=== PATIENT | male | born 1955 | race Caucasian/White ===

== ENCOUNTER 2017-11-27 19:34 | Observation (INO) ==
--- NOTE | 2017-11-27 19:41 | Emergency Department Note ---
Disposition Clinical Impression: History of BPH, History of prostatitis Hematuria Qualifiers: Hematuria type: gross Qualified Code(s): R31.0 - Gross hematuria Rhodes catheter problem Qualifiers: Encounter type: initial encounter Qualified Code(s): T83.9XXA - Unspecified complication of genitourinary prosthetic device, implant and graft, initial encounter Disposition: Admitted As Inpatient Condition: Good Time of Disposition: 21:07 General Adult HPI - General Chief complaint: ED Urogenital-Male Stated complaint: Cath Prob Time Seen by Provider: 11/27/17 19:41 Source: patient Mode of arrival: ambulatory Limitations: no limitations Nursing Notes Reviewed: Yes Vital Signs Reviewed: Yes - History of Present Illness HPI Narrative: Patient is a 62-year-old male with past medical history of BPH, CAD. He presented today due to urinary retention to the ER earlier in the day. He said that he has had issues in the past with BPH and urinary retention and has required antibiotic treatment for prostatitis. He is currently on doxycycline for prostatitis. he also takes plavix and aspirin daily. He states that ever since the Rhodes was placed this morning, he has had bleeding. Now, his catheter has stopped draining completely. Nursing staff flushed his catheter and was able to get urine out but it is eulalia red blood. He currently complains of mild suprapubic pain but denies any nausea, vomiting, fevers, diarrhea, chest pain, shortness of breath, fevers. Pain Scale: 10 - Related Data Home Medications Medication Instructions Recorded Confirmed Aspirin 81 mg PO DAILY 10/24/15 10/24/15 Atorvastatin Calcium [Lipitor] 80 mg PO HS 10/24/15 10/24/15 Cholecalciferol (Vitamin D3) 5,000 unit PO DAILY 10/24/15 10/24/15 [Vitamin D3] Clopidogrel [Plavix] 75 mg PO DAILY 10/24/15 10/24/15 Cyanocobalamin (Vitamin B-12) 1,000 mcg SL DAILY 10/24/15 10/24/15 [Vitamin B-12] Fluticasone Propionate Nasal 50 mcg NS DAILY 10/24/15 10/24/15 [Flonase] Gabapentin [Neurontin] 300 mg PO BID 10/24/15 10/24/15 Isosorbide MONOnitrate [Isosorbide 120 mg PO DAILY 10/24/15 10/24/15 Mononitrate ER] Metoprolol XL (24 HR) Succ [Toprol 50 mg PO DAILY 10/24/15 10/24/15 Xl] Nitroglycerin [Nitrostat] 0.4 mg SL Q5-6MIN PRN 10/24/15 10/24/15 Omeprazole [PriLOSEC] 40 mg PO DAILY 10/24/15 10/24/15 Oxycodone HCl/Acetaminophen 1 tab PO Q6H PRN 10/24/15 10/24/15 [Percocet 7.5-325 mg Tablet] rOPINIRole [Requip] 3 mg PO HS 10/24/15 10/24/15 Allergies Allergy/AdvReac Type Severity Reaction Status Date / Time No Known Allergies Allergy Verified 11/27/17 19:38 All systems ED: reviewed and negative except as stated. Constitutional: Denies: fever Cardiovascular: Denies: chest pain Respiratory: Denies: dyspnea Gastrointestinal: Reports: abdominal pain. Denies: nausea, vomiting, diarrhea, constipation, hematemesis, melena, hematochezia Genitourinary: Reports: hematuria. Denies: urgency, dysuria, frequency, discharge, testicular pain, testicular mass, genital lesions Neurological: Denies: headache, weakness, numbness, paresthesias Past Medical History - Past Medical History Attestation: Yes The following information was validated with the patient. Source: patient Medical history: Reports: coronary artery disease, hyperlipidemia, hypertension , myocardial infarction, other Psychiatric history: Reports: no psych history - Social History Smoking Status: Never smoker Smokeless Tobacco Status: Yes Alcohol use: Reports: none Drug use: Reports: none Physical Exam - General General appearance: alert, anxious - Head Head exam: atraumatic, normocephalic, normal inspection - Eye Eye exam: Present: normal appearance, PERRL, EOMI - ENT ENT exam: normal exam, normal oropharynx, mucous membranes moist - Neck Neck exam: Present: normal inspection, full ROM, trachea midline - Chest Chest inspection: Present: normal inspection, symmetric chest wall rise - Respiratory Respiratory exam: Present: normal lung sounds bilaterally - Cardiovascular Cardiovascular exam: Present: regular rate, normal rhythm, normal heart sounds - Abdominal Exam Abdominal exam: Present: soft, Non-Tender. Absent: tenderness, distention, guarding, rebound, rigidity - Extremities Exam Extremities exam: Present: normal inspection, full ROM. Absent: tenderness, pedal edema - Neurological Exam Neurological exam: Present: alert, oriented X3 - Psychiatric Psychiatric exam: Present: normal affect, normal mood - Skin Skin exam: Present: warm, dry, intact, normal color Course Course Narrative: Patient hypertensive when he first came in. Otherwise, the rest of the vitals were within normal limits. Physical exam shows clear lungs to auscultation bilaterally, abdomen soft and nontender. Rhodes catheter is in place, it is a triple lumen, it was flushed a bedside by nursing staff. There has been return of urine into the bag now after flushing clots, but it looks like eulalia red blood at this point in the back. I talked with urology, Dr. Dennis. He states that he will be in to see the patient in an hour. He has requested that urology cart be at bedside. He will flush the catheter himself. He also recommended admission due to gross bleeding for monitoring. We will obtain CBC , BMP, PT/INR, PTT, CT abd pelvis with IV contrast to assess for any puncture of urethera/bladder. Will admit to hospitalist after urology evaluates and bedside and labs are back. 23:27 Catheter has been flushed and changed by urologist. Hemoglobin within normal limits. Creatinine within normal limits. Currently waiting on CT scan of abdomen and pelvis. Spoke with hospitalist and accepted for admission. Vital Signs Temperature 98.1 F 11/27/17 19:36 Pulse Rate 94 11/27/17 19:36 Respiratory Rate 16 11/27/17 19:36 Blood Pressure 200/92 11/27/17 19:36 O2 Sat by Pulse Oximetry 96 11/27/17 19:36 Temperature 97.7 F 11/28/17 01:54 Pulse Rate 76 11/28/17 01:54 Respiratory Rate 17 11/28/17 01:54 Blood Pressure 120/65 11/28/17 01:54 O2 Sat by Pulse Oximetry 95 11/28/17 01:54 Oxygen Delivery Oxygen Delivery Room Air Medical Decision Making - MDM Narrative Medical decision making narrative: Patient hypertensive when he first came in. Otherwise, the rest of the vitals were within normal limits. Physical exam shows clear lungs to auscultation bilaterally, abdomen soft and nontender. Rhodes catheter is in place, it is a triple lumen, it was flushed a bedside by nursing staff. There has been return of urine into the bag now after flushing clots, but it looks like eulalia red blood at this point in the back. I talked with urology, Dr. Dennis. He states that he will be in to see the patient in an hour. He has requested that urology cart be at bedside. He will flush the catheter himself. He also recommended admission due to gross bleeding for monitoring. We will obtain CBC , BMP, PT/INR, PTT, CT abd pelvis with IV contrast to assess for any puncture of urethera/bladder. Will admit to hospitalist after urology evaluates and bedside and labs are back. 23:27 Catheter has been flushed and changed by urologist. Hemoglobin within normal limits. Creatinine within normal limits. Currently waiting on CT scan of abdomen and pelvis. Spoke with hospitalist and accepted for admission. 00:03 CT abdomen and pelvis negative for any acute process Abdomen/Pelvis CT 11/27/17 21:00 IMPRESSION: 1. Rhodes catheter within a decompressed bladder with nonspecific bladder wall thickening. 2. Nonspecific prostatomegaly. 3. Stable right greater than left nonspecific perinephric stranding. Correlation with urine analysis for possibility of pyelonephritis is recommended. 4. Punctate nonobstructing right renal calculi. 4 mm nonobstructing left renal calculi. No hydronephrosis bilaterally. 5. Otherwise no acute findings. Stable chronic incidental is as above. D/ / Elías Salinas MD / Elías Salinas MD Interpreting Provider: Elías Salinas MD - Medical Records Medical records reviewed: Yes I reviewed the patient's medical records. - Lab Data Lab results reviewed: Yes I reviewed the patient's lab results. Result diagrams: 11/27/17 22:00 11/27/17 22:00 Lab Results 11/27/17 11/27/17 11/27/17 Range/Units 22:00 22:00 22:00 WBC 8.1 (4.3-11.1) K/mcL RBC 4.95 (4.19-5.50) M/mcL Hgb 14.7 (12.9-16.9) g/dL Hct 43.5 (37.5-50.1) % MCV 87.9 (83.0-100.0) fL MCH 29.7 (28.0-33.3) pg MCHC 33.8 (31.6-35.5) g/dL RDW 13.9 (11.5-14.5) % Plt Count 229 (140-400) K/mcL MPV 10.0 (9.4-12.4) fL Immature Gran % 0.2 (0-4) % Seg Neutrophils % 76.5 % Lymphocytes % 13.8 % Monocytes % 7.0 % Eosinophils % 2.0 % Basophils % 0.5 % Neutrophils # 6.2 (1.6-8.9) K/mcL Lymphocytes # 1.1 (0.6-4.6) K/mcL Monocytes # 0.6 (0.0-1.3) K/mcL Eosinophils # 0.2 (0.0-0.6) K/mcL Basophils # 0.0 (0.0-0.2) K/mcL PT 12.6 H (9.4-12.1) Seconds INR 1.2 APTT 32.9 (26.0-36.0) Seconds Sodium 136 (136-145) mEq/L Potassium 4.4 (3.5-5.1) mEq/L Chloride 105 (98-107) mEq/L Carbon Dioxide 27 (23-29) mEq/L BUN 18 (8-23) mg/dL Creatinine 1.14 (0.70-1.30) mg/dL Est GFR ( Amer) > 60 (> 60) Est GFR (Non-Af Amer) > 60 (> 60) BUN/Creatinine Ratio 16 (6-26) Glucose 109 H (70-105) mg/dL Calculated Osmolality 284 (280-300) Calcium 10.1 (8.6-10.3) mg/dL Blood Type Antibody Screen 11/27/17 Range/Units 22:00 WBC (4.3-11.1) K/mcL RBC (4.19-5.50) M/mcL Hgb (12.9-16.9) g/dL Hct (37.5-50.1) % MCV (83.0-100.0) fL MCH (28.0-33.3) pg MCHC (31.6-35.5) g/dL RDW (11.5-14.5) % Plt Count (140-400) K/mcL MPV (9.4-12.4) fL Immature Gran % (0-4) % Seg Neutrophils % % Lymphocytes % % Monocytes % % Eosinophils % % Basophils % % Neutrophils # (1.6-8.9) K/mcL Lymphocytes # (0.6-4.6) K/mcL Monocytes # (0.0-1.3) K/mcL Eosinophils # (0.0-0.6) K/mcL Basophils # (0.0-0.2) K/mcL PT (9.4-12.1) Seconds INR APTT (26.0-36.0) Seconds Sodium (136-145) mEq/L Potassium (3.5-5.1) mEq/L Chloride (98-107) mEq/L Carbon Dioxide (23-29) mEq/L BUN (8-23) mg/dL Creatinine (0.70-1.30) mg/dL Est GFR ( Amer) (> 60) Est GFR (Non-Af Amer) (> 60) BUN/Creatinine Ratio (6-26) Glucose (70-105) mg/dL Calculated Osmolality (280-300) Calcium (8.6-10.3) mg/dL Blood Type A POSITIVE Antibody Screen NEGATIVE - Radiology Data Radiology results reviewed: Yes I reviewed the patient's radiology results. S.B.A.R. - S.B.A.R. Situation: Demographics, MOA Background: Presenting Complaint, Relevant PMH, Meds, & Allergies Assessment: Vital Signs, Course and respsone to treatment, Exam Concerns, Patient/Family Expectation, Pertinant Lab Results, Outstanding Labs Recommendation: Barrier(s) to disposition, Recommendation based on pending studies, treatments, or consults S.B.A.R. Report Given to: Dr. Florentino - Pending CT abd pelvis S.B.A.R. Repor Time: 00:03 Attestation Statement - Attestation Attestation: I examined this patient and my medical decision-making was reviewed with the Resident Physician. I agree with the documented findings, disposition and treatment plan as described except to the extent set forth below. Findings consistent with bleeding from the Rhodes catheter. Urology is available at bedside. Plan to admit for further management after bladder edition. Urology will evaluate the patient on the floor. CT scan shows findings consistent with cystitis. Antibiotic coverage was initiated.
--- NOTE | 2017-11-27 21:35 | Urology - Consult Note ---
Date of Encounter: 11/27/17 Time of Encounter: 21:32 - Assessment and Plan (1) Hematuria Current Visit: Yes Status: Acute Assessment and plan: Patient's 22-Ukrainian catheter was manually irrigated but did not seem to irrigate well secondary to bladder spasms. Patient did then spasms some clots around the catheter. I removed this catheter and then placed a 24-Ukrainian hematuria catheter. 20 mL was placed in the balloon. This then irrigated well the patient continue with bladder spasms. Agree with CT abdomen and pelvis to evaluate for status of residual clot within the bladder as well as upper tract pathology. Patient would brought in for observation for continuous bladder irrigation. Qualifiers: Hematuria type: gross Qualified Code(s): R31.0 - Gross hematuria (2) Acute retention of urine Current Visit: No Status: Acute Assessment and plan: Will need to continue with catheter at this time. Patient well-established Dr. Alexander. We will schedule follow-up depending on results of continuous irrigation as well as CT scan. Urology CN:HPI Consult date: 11/27/17 Reason for consult Urology: Difficult Rhodes Requesting physician: Jose Alejandro La History of present illness: Olaf is a 62-year-old male with a history of off-and-on on gross hematuria. Patient presented to the emergency department this morning secondary hematuria. A 22-Ukrainian 3-way catheter was placed and eventually clear with light irrigation. Patient was discharged home. He returns later today secondary to catheter not functioning. Catheter was also not urinating well. Patient is known well to me for undergoing very similar problem one year ago. Patient does follow with Dr. Alexander and recently underwent cystoscopic evaluation for gross hematuria. Patient has not had any upper tract imaging for quite some time. Patient states that his pain has improved and his lower abdomen but is a 1 out of 10 pressure in nature with no radiation. Patient is on aspirin and Plavix for history of 3 cardiac stents. Past Med Surg Social Fam HX - Past Medical History Medical history: coronary artery disease, hyperlipidemia, hypertension, myocardial infarction, other Psychiatric history: no psych history - Social History Smoking Status: Never smoker Smokeless Tobacco Status: Yes Alcohol use: none Drug use: none Medications and Allergies Aspirin 81 mg PO DAILY 10/24/15 [History] Atorvastatin Calcium [Lipitor] 80 mg PO HS 10/24/15 [History] Cholecalciferol (Vitamin D3) [Vitamin D3] 5,000 unit PO DAILY 10/24/15 [History] Clopidogrel [Plavix] 75 mg PO DAILY 10/24/15 [History] Cyanocobalamin (Vitamin B-12) [Vitamin B-12] 1,000 mcg SL DAILY 10/24/15 [ History] Fluticasone Propionate Nasal [Flonase] 50 mcg NS DAILY 10/24/15 [History] Gabapentin [Neurontin] 300 mg PO BID 10/24/15 [History] Isosorbide MONOnitrate [Isosorbide Mononitrate ER] 120 mg PO DAILY 10/24/15 [ History] Metoprolol XL (24 HR) Succ [Toprol Xl] 50 mg PO DAILY 10/24/15 [History] Nitroglycerin [Nitrostat] 0.4 mg SL Q5-6MIN PRN 10/24/15 [History] Omeprazole [PriLOSEC] 40 mg PO DAILY 10/24/15 [History] Oxycodone HCl/Acetaminophen [Percocet 7.5-325 mg Tablet] 1 tab PO Q6H PRN [History] rOPINIRole [Requip] 3 mg PO HS 10/24/15 [History] 3 Allergy/AdvReac Type Severity Reaction Status Date / Time No Known Allergies Allergy Verified 11/27/17 19:38 Review of Systems - Constitutional no chills, no fever(s) - EENT Nose, mouth and throat: no dizziness, no headache(s) - Cardiovascular no chest pain - Respiratory no cough - Gastrointestinal abdominal pain - Genitourinary as per HPI - Musculoskeletal no back pain - Integumentary no erythema, no rash - Neurological no confusion, no weakness - Psychiatric no anxiety, no confusion - Hematologic/Lymphatic easy bleeding Exam Initial Vital Signs Temp Pulse Resp BP Pulse Ox 98.1 F 94 16 200/92 96 11/27/17 19:36 11/27/17 19:36 11/27/17 19:36 11/27/17 19:36 11/27/17 19:36 - General physical appearance Present: well developed, no distress - Eyes Absent: icteric - Neck Present: no masses, no lymphadenopathy - Respiratory Present: normal respiratory effort - Cardiovascular Cardiovascular exam IM: RRR - Abdomen Abdomen: Present: soft, suprapubic tenderness - Genitourinary normal penis with no external lesions - Integumentary Present: no rash, no abnormal pigmentation - Neurologic Absent: confused Urology Results - Labs All other labs normal. Consult Discharge Plan - Plan Referrals: Vi Curtis CNP [Primary Care Provider] -
[2017-11-27 22:21] LABS: Basophils % 0.5 %; Eosinophils # 0.2 K/mcL (0.0-0.6); Hematocrit 43.5 % (37.5-50.1); Hemoglobin 14.7 g/dL (12.9-16.9); Immature Granulocytes % 0.2 % (0-4); Lymphocytes # 1.1 K/mcL (0.6-4.6); Lymphocytes % 13.8 %; Mean Corpuscular HGB Conc 33.8 g/dL (31.6-35.5); Mean Corpuscular Hemoglobin 29.7 pg (28.0-33.3); Mean Corpuscular Volume 87.9 fL (83.0-100.0); Monocytes # 0.6 K/mcL (0.0-1.3); Neutrophils # 6.2 K/mcL (1.6-8.9); Platelet Count 229 K/mcL (140-400); Red Blood Count 4.95 M/mcL (4.19-5.50); Red Cell Distribution Width 13.9 % (11.5-14.5); Segmented Neutrophils % 76.5 %
[2017-11-27 22:26] LABS: INR 1.2; Prothrombin Time 12.6 Seconds (9.4-12.1)
[2017-11-27 22:29] LABS: Activated Partial Thrombo Time 32.9 Seconds (26.0-36.0)
[2017-11-27] MEDS ORDERED: *HR* OxyCODONE/APAP 7.5/325 TABLET PO PRN (22:36)
[2017-11-27] MEDS ORDERED: Naloxone 0.4 MG/ML INJ IVP PRN (22:40)
[2017-11-27] MEDS ORDERED: Acetaminophen 325 MG TABLET PO PRN (22:40)
[2017-11-27] MEDS ORDERED: Melatonin 3 MG TABLET PO PRN (22:40)
[2017-11-27 22:41] LABS: BUN/Creatinine Ratio 16 (6-26); Blood Urea Nitrogen 18 mg/dL (8-23); Calcium 10.1 mg/dL (8.6-10.3); Carbon Dioxide 27 mEq/L (23-29); Chloride 105 mEq/L (98-107); Glucose 109 mg/dL (70-105); Osmolality,Calculated 284 (280-300); Potassium 4.4 mEq/L (3.5-5.1); Sodium 136 mEq/L (136-145); eGFR For African Americans > 60 (> 60); eGFR For Non-African Americans > 60 (> 60)
--- NOTE | 2017-11-27 22:45 | Internal Med History&Physical ---
Date of Encounter: 11/27/17 Time of Encounter: 22:42 Assessment and Plan (1) Hematuria Current visit: Yes Status: Acute needing davey placement today but unfortunately c/b gross hematuria , with clots and progression to obstructive uropathy needing admission and immediate urology assistance Now with 3 way irrigation davey Qualifiers: Hematuria type: gross Qualified Code(s): R31.0 - Gross hematuria (2) Acute retention of urine Current visit: No Status: Acute needing davey placement today but unfortunately c/b gross hematuria , with clots and progression to obstructive uropathy needing admission and immediate urology assistance Now with 3 way irrigation davey (3) History of prostatitis Current visit: Yes Status: Acute s/p doxy outpatient urine cx no growth follow urol dr michaels (4) CAD (coronary artery disease), [place] coronary artery Current visit: Yes Status: Acute last stent approx 4 years ago given bleeding , will continue 81 ASA but hold plavix this inpatient for now given stent > 4 years ago Qualifiers: [place] vs. transplanted heart: [place] heart Associated angina: without angina Qualified Code(s): I25.10 - Atherosclerotic heart disease of [place] coronary artery without angina pectoris Internal Medicine - H&P: HPI Chief complaint: Gross hematuria with clots, no Davey output History of present illness: Mr. Jeffers is a 62 year old male with hx of CAD s/p stents , last 4 years ago, BPH, hx of recurrent prostatitis who presents with urinary retention and had to have davey placement. However, post davey placement c/b gross hematuria with clots leading to obstructive uropathy. He was previously seen in the outpatient by dr michaels for 3-4 weeks hx of rectal pressure and LUTs suspicious for prostatitis. He was given a course of doxycycline since 2Feb with some improvement but later developed urinary retention leading to davey placement in the ED. Unfortunately, davey placement was complicated by obstructive clot uropathy above. Past Med Surg Social Fam HX - Past Medical History Medical history: coronary artery disease, hyperlipidemia, hypertension, myocardial infarction, other Psychiatric history: no psych history - Social History Smoking Status: Never smoker Smokeless Tobacco Status: Yes Alcohol use: none Drug use: none Internal Medicine - H&P: Meds Aspirin 81 mg PO DAILY 10/24/15 [History] Atorvastatin Calcium [Lipitor] 80 mg PO HS 10/24/15 [History] Cholecalciferol (Vitamin D3) [Vitamin D3] 5,000 unit PO DAILY 10/24/15 [History] Clopidogrel [Plavix] 75 mg PO DAILY 10/24/15 [History] Cyanocobalamin (Vitamin B-12) [Vitamin B-12] 1,000 mcg SL DAILY 10/24/15 [ History] Fluticasone Propionate Nasal [Flonase] 50 mcg NS DAILY 10/24/15 [History] Gabapentin [Neurontin] 300 mg PO BID 10/24/15 [History] Isosorbide MONOnitrate [Isosorbide Mononitrate ER] 120 mg PO DAILY 10/24/15 [ History] Metoprolol XL (24 HR) Succ [Toprol Xl] 50 mg PO DAILY 10/24/15 [History] Nitroglycerin [Nitrostat] 0.4 mg SL Q5-6MIN PRN 10/24/15 [History] Omeprazole [PriLOSEC] 40 mg PO DAILY 10/24/15 [History] Oxycodone HCl/Acetaminophen [Percocet 7.5-325 mg Tablet] 1 tab PO Q6H PRN [History] rOPINIRole [Requip] 3 mg PO HS 10/24/15 [History] 3 Allergy/AdvReac Type Severity Reaction Status Date / Time No Known Allergies Allergy Verified 11/27/17 19:38 All Systems PM: A 10-system review of systems was performed and is negative for pertinent findings except as documented above in the HPI. Review of systems: ROS 14 point review of systems reviewed as best as possible given presentation. Pertinent positive or negative as per HPI or otherwise reviewed as negative - Constitutional Vitals: Temp Pulse Resp BP Pulse Ox 98.1 F 80 20 143/80 94 11/27/17 19:36 11/27/17 22:07 11/27/17 22:07 11/27/17 22:07 11/27/17 22:07 Exam: General - AAO x 3 Psych - Appropriate affect/speech. No agitation Eyes - JODY. Eye lids intact. No scleral icterus Neuro - No gross peripheral or central neuro deficits on inspection Heart - Sinus. RRR. S1 and S2 present. No added HS/murmurs appreciated. No elevated JVD appreciated. Lung - Adequate air entry b/l, No crackles/wheezes appreciated GI - Soft, non-tender. No hepatosplenomegaly/ascites. BS+ - Davey in situ Skin - Intact. No rash/petechiae/ecchymosis. Warm extremities MSK - Joints with normal ROM. No joint swellings Internal Med - H&P Results - Labs CBC & Chem 7: 11/27/17 22:00 11/27/17 22:00 Labs: Short CBC 11/27/17 Range/Units 22:00 WBC 8.1 (4.3-11.1) K/mcL Hgb 14.7 (12.9-16.9) g/dL Hct 43.5 (37.5-50.1) % Plt Count 229 (140-400) K/mcL Neutrophils # 6.2 (1.6-8.9) K/mcL BMP 11/27/17 22:00 Sodium 136 Potassium 4.4 Chloride 105 Carbon Dioxide 27 BUN 18 Creatinine 1.14 Glucose 109 H Calcium 10.1
[2017-11-28] MEDS ORDERED: cefTRIAXone 2,000 MG in Water for inj. (sterile) 20 ML 20 ML IVPB ONE (00:16)
[2017-11-28] MEDS: *HR* OxyCODONE Immed Rel 5 MG TABLET PO PRN ×2 (01:14→09:52)
[2017-11-28 06:33] LABS: Basophils # 0.1 K/mcL (0.0-0.2); Basophils % 0.8 %; Eosinophils # 0.3 K/mcL (0.0-0.6); Eosinophils % 4.2 %; Hematocrit 45.7 % (37.5-50.1); Hemoglobin 15.1 g/dL (12.9-16.9); Immature Granulocytes % 0.3 % (0-4); Lymphocytes % 30.4 %; Mean Corpuscular Hemoglobin 29.2 pg (28.0-33.3); Mean Corpuscular Volume 88.4 fL (83.0-100.0); Mean Platelet Volume 9.9 fL (9.4-12.4); Monocytes # 0.6 K/mcL (0.0-1.3); Monocytes % 8.5 %; Neutrophils # 3.6 K/mcL (1.6-8.9); Platelet Count 250 K/mcL (140-400); Red Blood Count 5.17 M/mcL (4.19-5.50); Segmented Neutrophils % 55.8 %
[2017-11-28 06:49] LABS: BUN/Creatinine Ratio 19 (6-26); Blood Urea Nitrogen 16 mg/dL (8-23); Calcium 10.1 mg/dL (8.6-10.3); Carbon Dioxide 26 mEq/L (23-29); Chloride 105 mEq/L (98-107); Glucose 93 mg/dL (70-105); Osmolality,Calculated 283 (280-300); Potassium 4.2 mEq/L (3.5-5.1); Sodium 136 mEq/L (136-145); eGFR For African Americans > 60 (> 60); eGFR For Non-African Americans > 60 (> 60)
[2017-11-28 08:09] VITALS: BP 127/74
[2017-11-28] MEDS ORDERED: Fluticasone Propionate Nasal 50 MCG/SPRAY BOTTLE NS SCH (09:00)
[2017-11-28] MEDS ORDERED: Gabapentin 300 MG CAPSULE PO SCH (09:00)
[2017-11-28] MEDS ORDERED: Aspirin 81 MG TAB.CHEW PO SCH (09:00)
[2017-11-28] MEDS ORDERED: Cholecalciferol (D-3) 1,000 UNIT TABLET PO SCH (09:00)
[2017-11-28] MEDS ORDERED: Cyanocobalamin (B-12) 1,000 MCG TABLET PO SCH (09:00)
[2017-11-28] MEDS ORDERED: Isosorbide MONOnitrate (24 HR) 60 MG TAB.ER.24H PO SCH (09:00)
[2017-11-28] MEDS ORDERED: Metoprolol XL (24 HR) Succ 50 MG TAB.ER.24H PO SCH (09:00)
--- NOTE | 2017-11-28 09:18 | Urology Progress Note ---
Date of Encounter: 11/28/17 Time of Encounter: 09:17 - Assessment and Plan (1) Hematuria Current Visit: Yes Status: Acute Assessment and plan: continue catheter. ok to dc with catheter. f/u with Benjamin this in [place] at 9am. Qualifiers: Hematuria type: gross Qualified Code(s): R31.0 - Gross hematuria Progress Note Narrative: patient seen. requring minimal if any irrigation last night. Objective Initial Vital Signs Temp Pulse Resp BP Pulse Ox 98.1 F 94 16 200/92 96 11/27/17 19:36 11/27/17 19:36 11/27/17 19:36 11/27/17 19:36 11/27/17 19:36 - General physical appearance Present: well developed - Abdomen Present: soft - Genitourinary Present: other (urine clear in tubing off irrigation ) - Labs 11/28/17 06:13 11/28/17 06:13 Diabetes panel 11/28/17 Range/Units 06:13 Sodium 136 (136-145) mEq/L Potassium 4.2 (3.5-5.1) mEq/L Chloride 105 (98-107) mEq/L Carbon Dioxide 26 (23-29) mEq/L BUN 16 (8-23) mg/dL Creatinine 0.85 (0.70-1.30) mg/dL Glucose 93 (70-105) mg/dL Calcium 10.1 (8.6-10.3) mg/dL Calcium panel 11/28/17 Range/Units 06:13 Calcium 10.1 (8.6-10.3) mg/dL Pituitary panel 11/28/17 Range/Units 06:13 Sodium 136 (136-145) mEq/L Potassium 4.2 (3.5-5.1) mEq/L Chloride 105 (98-107) mEq/L Carbon Dioxide 26 (23-29) mEq/L BUN 16 (8-23) mg/dL Creatinine 0.85 (0.70-1.30) mg/dL Glucose 93 (70-105) mg/dL Calcium 10.1 (8.6-10.3) mg/dL Adrenal panel 11/28/17 Range/Units 06:13 Sodium 136 (136-145) mEq/L Potassium 4.2 (3.5-5.1) mEq/L Chloride 105 (98-107) mEq/L Carbon Dioxide 26 (23-29) mEq/L BUN 16 (8-23) mg/dL Creatinine 0.85 (0.70-1.30) mg/dL Glucose 93 (70-105) mg/dL Calcium 10.1 (8.6-10.3) mg/dL Consult Discharge Plan - Plan Referrals: Vi Curtis, [employer] [Primary Care Provider] -
--- NOTE | 2017-11-28 11:55 | Discharge Summary ---
Date of Encounter: 11/28/17 Time of Encounter: 10:05 - Discharge Diagnosis (1) CAD (coronary artery disease), [place] coronary artery Priority: Secondary Status: Chronic Qualifiers: [place] vs. transplanted heart: [place] heart Associated angina: without angina Qualified Code(s): I25.10 - Atherosclerotic heart disease of [place] coronary artery without angina pectoris (2) Hematuria Priority: Primary Status: Acute Qualifiers: Hematuria type: gross Qualified Code(s): R31.0 - Gross hematuria (3) History of BPH Priority: Secondary Status: Chronic (4) History of prostatitis Priority: Secondary Status: Chronic - Discharge Medications Home Medications: Aspirin 81 mg PO DAILY 10/24/15 [History] Atorvastatin Calcium [Lipitor] 80 mg PO HS 10/24/15 [History] Cholecalciferol (Vitamin D3) [Vitamin D3] 5,000 unit PO DAILY 10/24/15 [History] Clopidogrel [Plavix] 75 mg PO DAILY 10/24/15 [History] Cyanocobalamin (Vitamin B-12) [Vitamin B-12] 1,000 mcg SL DAILY 10/24/15 [ History] Isosorbide MONOnitrate [Isosorbide Mononitrate ER] 120 mg PO DAILY 10/24/15 [ History] Metoprolol XL (24 HR) Succ [Toprol Xl] 50 mg PO DAILY 10/24/15 [History] Nitroglycerin [Nitrostat] 0.4 mg SL Q5-6MIN PRN 10/24/15 [History] Omeprazole [PriLOSEC] 40 mg PO DAILY 10/24/15 [History] Cyclobenzaprine HCl 5 mg PO HS PRN 11/28/17 [History] Doxycycline Monohydrate [Mondoxyne Nl] 100 mg PO Q12H 11/28/17 [History] Finasteride [Proscar] 5 mg PO DAILY 11/28/17 [History] HYDROcodone/Acet 7.5/325 mg [[place] 7.5-325 mg] 1 tab PO 2-3XD PRN 11/28/17 [ History] Ropinirole HCl [Requip] 4 mg PO HS 11/28/17 [History] Allergies/Adverse Reactions: 3 Allergy/AdvReac Type Severity Reaction Status Date / Time No Known Allergies Allergy Verified 11/27/17 19:38 Date of admission: 11/28/17 00:08 Primary care physician: Vi Curtis CNP Consults: 11/28/17 08:48 Consult to Urology [CONS] Stat Consulting Provider: Herbert Jay Reason for Consult: gross hematuria Call Completed: Yes Discharging clinician: Isabell Shin Anticipated date of discharge: 11/28/17 - Patient Status Disposition: Home, Self-Care Condition: Good Functional capacity at discharge: independent ambulation Overall status at discharge: patient is back to baseline - Discharge Instructions Follow Up With: Vi Curtis CNP [Primary Care Provider] - Additional Instructions: Please follow up with urology (Dr. Alexander) on November at 9am Please follow up with your primary care physician within one week after your discharge from the hospital. Please continue davey support until your follow up with urology. Continue to hold your home dose of plavix until your follow up with urology. Resume all other medications as prescribed by your primary care physician. - Diet and Activity Activity: resume usual activities as tolerated Diet: low fat, low cholesterol, low salt diet Hospital course: Mr. Jeffers is a 62 year old male with PMH of CAD, HTN, HLD, BPH admitted for gross hematuria and urinary retention. Pt had davey cath placed and was started on CBI. Pt was followed by urology. Hematuria improved. Pt will be discharged with davey cath with outpatient follow up with urology. Pt and in agreement with the discharge plan. - Time Spent with Patient Total time spent providing and/or coordinating discharge services: Less than 30 minutes - Constitutional Vitals: Temp Pulse Resp BP Pulse Ox 98.2 F 79 16 127/74 95 11/28/17 08:09 11/28/17 08:09 11/28/17 08:09 11/28/17 08:09 11/28/17 08:09 General appearance: Present: A&O X 3, morbidly obese, no acute distress - Head Head exam: Present: atraumatic, normocephalic - Eye Eye exam: Present: conjuntiva pink, sclera anicteric - Respiratory Respiratory exam: Present: CTAB. Absent: accessory muscle use, rales, rhonchi, wheezes - Cardiovascular Cardiovascular exam: Present: RRR, +S1, +S2. Absent: diastolic murmur, gallop, rubs, systolic murmur - GI/Abdominal GI/Abdominal exam: Present: normal bowel sounds, soft, no peritoneal signs. Absent: distended, tenderness - Extremities Exam Extremities exam: Present: warm, radial pulses palpable and symmetrical. Absent : calf tenderness, pedal edema - Neurological Exam Neurological exam: Present: alert, oriented X3 - Psychiatric Psychiatric exam: Present: normal affect, normal mood
== END 2017-11-28 12:30 | disposition home or self-care (01) ==
LOC: 2ANU 19:34 → EMEROO 19:34 → 2ANU 11-28 01:20
PROVIDERS: ADMIT Internal Medicine Hematology & Oncology; ATTEND Internal Medicine

== ENCOUNTER 2018-10-27 11:46 | Inpatient (IN) ==
[2018-10-27] MEDS ORDERED: Naloxone 0.4 MG/ML INJ IVP PRN (13:40)
[2018-10-27] MEDS ORDERED: Acetaminophen 325 MG TABLET PO PRN (13:40)
--- NOTE | 2018-10-27 14:21 | Internal Med History&Physical ---
Date of Encounter: 10/27/18 Time of Encounter: 13:30 Internal Medicine - H&P: HPI Chief complaint: R knee pain Admitted From: Direct Admit History of present illness: Mr. Jeffers is a 63 year old male with past medical history of CAD status post P CI, BPH, hypertension, hyperlipidemia, who was admitted from the orthopedic clinic due to concern for septic prepatellar bursitis. He first developed acute onset of R knee pain in mid September for which he was initially treated with a course of steroids from urgent care. He did not improve and was subsequent seen in [facility] where he had aspiration of the bursitis. At that time, the fluid culture grew MSSA but patient is not sure whether he was on abx afterward. He had recurrent knee pain which led to another clinic visit as well as MRI on 10/20 which showed soft tissue edema with prepatellar fluid collection compatible with prepatellar bursitis. He states that he was then placed on oral doxycycline without significant improvement and was therefore seen in the orthopedic clinic again on 10/27 followed by the admission. Denies any fever/chills, nausea/vomiting. No chest pain, shortness of breath, cough, sputum production, abdominal pain, change in bowel habits, or dysuria. No orthopnea, PND, or leg swelling. Prior to the onset of right knee pain, he was able to climb up a flight of stairs without difficulty. Upon arrival to the floor, he was afebrile and hemodynamically stable. Patient was admitted under hospitalist service for the management of septic bursitis. Past Med Surg Social Fam HX - Past Medical History Medical history: coronary artery disease, hyperlipidemia, hypertension, myocardial infarction, other Additional medical history: hernia Psychiatric history: no psych history - Past Surgical History Additional surgical history: BACK SURGERY 2013, CARDIAC CATH WITH STENT 12/2014 x3, DIVERTICULAR SURGERY - Social History Smoking Status: Never smoker Smokeless Tobacco Status: Yes Alcohol use: none Drug use: none - Family History Mother Living Status: Hx Family Cancer: Yes Father Living Status: Hx Family Neurologic Disorders: Yes (stroke) Internal Medicine - H&P: Meds RX: Aspirin 81 mg PO DAILY 10/24/15 [History] RX: Atorvastatin Calcium [Lipitor] 80 mg PO HS 10/24/15 [History] RX: Cholecalciferol (Vitamin D3) [Vitamin D3] 5,000 unit PO DAILY 10/24/15 [History] RX: Clopidogrel [Plavix] 75 mg PO DAILY 10/24/15 [History] RX: Cyanocobalamin (Vitamin B-12) [Vitamin B-12] 1,000 mcg SL DAILY 10/24/15 [History] RX: Isosorbide MONOnitrate [Isosorbide Mononitrate ER] 120 mg PO DAILY 10/24/15 [History] RX: Metoprolol XL (24 HR) Succ [Toprol Xl] 50 mg PO DAILY 10/24/15 [History] RX: Nitroglycerin [Nitrostat] 0.4 mg SL Q5-6MIN PRN 10/24/15 [History] RX: Omeprazole [PriLOSEC] 40 mg PO DAILY 10/24/15 [History] RX: Cyclobenzaprine HCl 5 mg PO HS PRN 11/28/17 [History] RX: Doxycycline Monohydrate [Mondoxyne Nl] 100 mg PO Q12H 11/28/17 [History] RX: Finasteride [Proscar] 5 mg PO DAILY 11/28/17 [History] RX: HYDROcodone/Acet 7.5/325 mg [[place] 7.5-325 mg] 1 tab PO 2-3XD PRN 11/28/17 [History] RX: Ropinirole HCl [Requip] 4 mg PO HS 11/28/17 [History] Allergy/AdvReac Type Severity Reaction Status Date / Time No Known Allergies Allergy Verified 11/27/17 19:38 All Systems PM: A 10-system review of systems was performed and is negative for pertinent findings except as documented above in the HPI. - Constitutional Vitals: Temp Pulse Resp BP Pulse Ox 97.8 F 74 16 147/81 94 10/27/18 12:47 10/27/18 12:47 10/27/18 12:47 10/27/18 12:47 10/27/18 12:47 Exam: General: Alert and oriented, not in acute distress. HEENT:EOMI, pupils equal, round and reactive. Cardiovascular:Normal S1 & S2, No JVD. Pulse regular. Lungs: clear to auscultation, no wheezes/rales Abdomen:Soft, non-tender, no rigidity. Extremities: R knee swelling noted anterior to R patella. Warm to touch, extremely tender on palpation. No obvious discharge expressed Neurological:Normal cognition and motor skills. Non-focal Skin:Normal color, no rash, no lesions. Pulses:Carotid and radial pulses normal +2. Rest of the physical exam is non contributory - Assessment and plan (1) Septic prepatellar bursitis of right knee Current Visit: Yes Status: Acute Assessment and plan: Failed outpatient therapy on oral doxycycline MRI finding as per HPI previous fluid culture 10/04 grew MSSA start IV Ancef, obtain blood cultures prior to abx NPO after midnight, possible washout tomorrow discussed with Dr. Barksdale (2) CAD (coronary artery disease), [place] coronary artery Current Visit: No Status: Chronic Assessment and plan: History of remote PCI in [facility] 10/2015 showed patent stents and 20-30% stenosis in LAD and LCX. 100% mRCA occlusion with collaterals pt denies any symptoms of angina or decompensated heart failure. RCRI 1, 0.9% risk of MACE resume home meds once reconciled Qualifiers: [place] vs. transplanted heart: [place] heart Associated angina: without angina Qualified Code(s): I25.10 - Atherosclerotic heart disease of [place] coronary artery without angina pectoris (3) HTN (hypertension) Current Visit: No Status: Chronic Assessment and plan: resume home meds once reconciled Qualifiers: Hypertension type: essential hypertension Qualified Code(s): I10 - Essential (primary) hypertension (4) DVT prophylaxis Current Visit: Yes Status: Acute Assessment and plan: SQ heparin - Time Spent With Patient Total time spent is greater than 50% in coordination of care (as documented) at patient's floor/unit and/or counseling patient: 36 mins
[2018-10-27 14:35] LABS: Basophils % 0.4 %; Eosinophils # 0.1 K/mcL (0.0-0.6); Eosinophils % 2.3 %; Hematocrit 46.1 % (37.5-50.1); Hemoglobin 15.1 g/dL (12.9-16.9); Immature Granulocytes % 0.2 % (0-4); Lymphocytes # 1.3 K/mcL (0.6-4.6); Lymphocytes % 26.4 %; Mean Corpuscular HGB Conc 32.8 g/dL (31.6-35.5); Mean Corpuscular Hemoglobin 29.2 pg (28.0-33.3); Mean Platelet Volume 9.8 fL (9.4-12.4); Monocytes # 0.4 K/mcL (0.0-1.3); Monocytes % 9.1 %; Platelet Count 246 K/mcL (140-400); Red Blood Count 5.18 M/mcL (4.19-5.50); Red Cell Distribution Width 14.2 % (11.5-14.5); Segmented Neutrophils % 61.6 %
[2018-10-27 14:44] LABS: INR 1.1; Prothrombin Time 12.2 Seconds (9.4-12.1)
[2018-10-27 14:49] LABS: BUN/Creatinine Ratio 17 (6-26); Blood Urea Nitrogen 16 mg/dL (8-23); Calcium 10.7 mg/dL (8.6-10.3); Carbon Dioxide 27 mEq/L (23-29); Chloride 106 mEq/L (98-107); Glucose 109 mg/dL (70-105); Osmolality,Calculated 292 (280-300); Potassium 4.1 mEq/L (3.5-5.1); Sodium 140 mEq/L (136-145); eGFR For Non-African Americans > 60 (> 60)
[2018-10-27] MEDS: *HR* OxyCODONE Immed Rel 5 MG TABLET PO PRN ×2 (15:39→21:25)
[2018-10-27] MEDS: ceFAZolin 1,000 MG in Water for inj. (sterile) 20 ML 10 ML IVP SCH ×2 (16:03→23:03)
[2018-10-27] MEDS: traMADol 50 MG TABLET PO PRN (17:55)
[2018-10-27] MEDS ORDERED: Nitroglycerin 0.4 MG TAB.SUBL SL PRN (19:33)
[2018-10-27] MEDS: rOPINIRole 1 MG TABLET PO SCH (20:01)
[2018-10-27] MEDS ORDERED: Isosorbide MONOnitrate (24 HR) 60 MG TAB.ER.24H PO SCH (20:08)
[2018-10-27] MEDS ORDERED: Metoprolol XL (24 HR) Succ 50 MG TAB.ER.24H PO SCH (20:15)
[2018-10-27] MEDS: *HR* Heparin 5,000 UNIT/ML VIAL SQ SCH (20:28)
[2018-10-28] MEDS: *HR* OxyCODONE Immed Rel 5 MG TABLET PO PRN ×3 (03:13→19:19)
[2018-10-28] MEDS: *HR* Heparin 5,000 UNIT/ML VIAL SQ SCH ×3 (05:56→22:22)
[2018-10-28 06:54] LABS: Basophils % 0.7 %; Eosinophils # 0.2 K/mcL (0.0-0.6); Eosinophils % 4.9 %; Hematocrit 43.7 % (37.5-50.1); Immature Granulocytes % 0.5 % (0-4); Lymphocytes # 1.5 K/mcL (0.6-4.6); Lymphocytes % 35.8 %; Mean Corpuscular Hemoglobin 29.8 pg (28.0-33.3); Mean Platelet Volume 10.1 fL (9.4-12.4); Monocytes # 0.5 K/mcL (0.0-1.3); Monocytes % 12.3 %; Platelet Count 221 K/mcL (140-400); Red Cell Distribution Width 14.4 % (11.5-14.5); Segmented Neutrophils % 45.8 %
[2018-10-28 07:06] LABS: BUN/Creatinine Ratio 21 (6-26); Blood Urea Nitrogen 21 mg/dL (8-23); Calcium 9.9 mg/dL (8.6-10.3); Carbon Dioxide 27 mEq/L (23-29); Chloride 104 mEq/L (98-107); Glucose 100 mg/dL (70-105); Osmolality,Calculated 287 (280-300); Potassium 4.4 mEq/L (3.5-5.1); Sodium 137 mEq/L (136-145); eGFR For Non-African Americans > 60 (> 60)
[2018-10-28] MEDS ORDERED: Bupivacaine/EPI 1:200k 0.5%PF 30 ML VIAL ONE (07:52)
--- NOTE | 2018-10-28 07:53 | Anesthesia Evaluation PreOp ---
Date of Encounter: 10/28/18 Time of Encounter: 07:52 - Past History Planned Operation: R knee I and D Cardiac History: [place], HTN, Hyperlipidemia, Cardiac Stent (x 3 in 2014, stents patent per 10/2015 [facility] with collaterals) Pulmonary History: Denies Any Significant HX RAILROAD AUDITOR History: Denies Any Significant HX Other Medical History: Other (BMI 42) Anesthesia History: No Prior Anesthetic Complications, Past Anesthesia (hernia repair, BACK SURGERY 2013, CARDIAC CATH WITH STENT 12/2014 x3, DIVERTICULAR SURGERY) Alcohol Use: none Drug use: none Medications and Allergies Aspirin 81 mg PO DAILY 10/24/15 [History] Atorvastatin Calcium [Lipitor] 80 mg PO HS 10/24/15 [History] Cyanocobalamin (Vitamin B-12) [Vitamin B-12] 1,000 mcg SL DAILY 10/24/15 [History] Isosorbide MONOnitrate [Isosorbide Mononitrate ER] 120 mg PO DAILY 10/24/15 [History] Metoprolol XL (24 HR) Succ [Toprol Xl] 50 mg PO DAILY 10/24/15 [History] Nitroglycerin [Nitrostat] 0.4 mg SL Q5-6MIN PRN 10/24/15 [History] Cyclobenzaprine HCl 5 mg PO HS PRN 11/28/17 [History] HYDROcodone/Acet 7.5/325 mg [[place] 7.5-325 mg] 1 tab PO 2-3XD PRN 11/28/17 [History] Ropinirole HCl [Requip] 4 mg PO HS 11/28/17 [History] Ergocalciferol (VITAMIN D2) [Vitamin D] 400 unit PO DAILY 10/27/18 [History] Omeprazole [PriLOSEC] 40 mg PO DAILY 10/27/18 [History] Allergy/AdvReac Type Severity Reaction Status Date / Time No Known Allergies Allergy Verified 10/27/18 18:35 - Meds/Allergy Pre-op Review Medications Reviewed: Yes Allergies Reviewed: Yes Beta Blockers on Current Med List: Yes If Beta Blockers taken, Date/Time (Last Dose taken): 10/27 20:27 Anesthesia Results - Labs 10/28/18 05:36 10/28/18 05:36 - Imaging EKG: image reviewed (SR, LAD) Additional studies: 10/24/15 LEFT HEART CATH Indications: Abnormal Test - Stress Impressions: Triple vessel coronary artery disease. The left ventricle is normal and has normal contractility EF 65% Patent stents in OM1, proximal LAD. Chronic total occlusion of RCA. Recommendations: Optimal medical therapy of patient's disease. Aggressive risk factor modification. Anesthesia Exam Vital Signs/O2 Sat, Most Current Temp Pulse Resp BP Pulse Ox 98.2 F 68 14 118/71 96 10/28/18 06:59 10/28/18 06:59 10/28/18 06:59 10/28/18 06:59 10/28/18 06:59 Height: 1.83m Weight: 140.5kg NPO (# of Hours): >8 - HEENT Pupil (Motor): Pupils equal, EOMI Mallampati: III Teeth: Normal Oral Opening: Greater than 3 - RAILROAD AUDITOR LOC: Oriented RAILROAD AUDITOR Motor: Normal RUE, Normal LUE, Normal RLE, Normal LLE, Normal Face RAILROAD AUDITOR Sensory: Normal: RUE, LUE, RLE, LLE, Face - Cardiac Rhythm: Regular - Pulmonary Breath Sounds: bilateral Clear Respiratory Effort: Symmetrical Anesthesia Assess/Plan ASA Score: 3 Level of consciousness: Cooperative Anesthetic Plan: General Monitoring Plan: Standard Monitors Recovery Plan: PACU
[2018-10-28] MEDS: ceFAZolin 1,000 MG in Water for inj. (sterile) 20 ML 10 ML IVP SCH ×3 (08:21→22:22)
[2018-10-28] MEDS: Cholecalciferol (D-3) 1,000 UNIT TABLET PO SCH (08:23)
[2018-10-28] MEDS: Aspirin 81 MG TAB.CHEW PO SCH (08:23)
[2018-10-28] MEDS ORDERED: Metoprolol XL (24 HR) Succ 50 MG TAB.ER.24H PO SCH (09:00)
[2018-10-28] MEDS ORDERED: Isosorbide MONOnitrate (24 HR) 60 MG TAB.ER.24H PO SCH (09:00)
--- NOTE | 2018-10-28 10:07 | Orthopedic Consult Note ---
Date of Encounter: 10/28/18 Time of Encounter: 10:04 Assessment and Plan (1) Septic prepatellar bursitis of right knee Current Visit: Yes Status: Acute The diagnosis and treatment options were discussed with patient. He has septic bursitis of the right knee. he has failed outpatient management with aspiration and oral antibiotics. We discussed treatment options and with his continued pain swelling and infection recommended surgical drainage with IV antibiotics. he will undergo right prepatellar bursa and bursectomy today. The risks and benefits of the procedure were fully explained in detail, including but not limited to the risk of infection, neurovascular injury, continued pain or stiffness, failure of surgery, reinjury, or need for addition al surgery, DVT, PE, general risks of anesthesia and loss of limb or life. No guarantees were given or implied and all questions were answered. The patient understands all the risks and does wish to proceed with written consent. History of Present Illness HPI: Mr. Jeffers is a 63 year old male admitted with right knee pain and swelling. A nterior knee swelling started about 4 weeks ago, scraped his knee about 6 weeks ago. Has had some surrounding erythema as well. No active drainage. Had it aspirated with sports medicine and cultures came back positive for MSSA. Has failed outpatient treatment with aspiration and PO antibiotics. He was admitted to the hospitalist from the office due to multiple medical comorbidities and for IV antibiotics as well as surgical management Past Med Surg Social Fam HX - Past Medical History Medical history: coronary artery disease, hyperlipidemia, hypertension, myocardial infarction, other Additional medical history: hernia Psychiatric history: no psych history - Past Surgical History Additional surgical history: BACK SURGERY 2013, CARDIAC CATH WITH STENT 12/2014 x3, DIVERTICULAR SURGERY - Social History Smoking Status: Never smoker Smokeless Tobacco Status: Yes Alcohol use: none Drug use: none - Family History Mother Living Status: Hx Family Cancer: Yes Father Living Status: Hx Family Neurologic Disorders: Yes (stroke) Medications and Allergies Aspirin 81 mg PO DAILY 10/24/15 [History] Atorvastatin Calcium [Lipitor] 80 mg PO HS 10/24/15 [History] Cyanocobalamin (Vitamin B-12) [Vitamin B-12] 1,000 mcg SL DAILY 10/24/15 [ History] Isosorbide MONOnitrate [Isosorbide Mononitrate ER] 120 mg PO DAILY 10/24/15 [History] Metoprolol XL (24 HR) Succ [Toprol Xl] 50 mg PO DAILY 10/24/15 [History] Nitroglycerin [Nitrostat] 0.4 mg SL Q5-6MIN PRN 10/24/15 [History] Cyclobenzaprine HCl 5 mg PO HS PRN 11/28/17 [History] HYDROcodone/Acet 7.5/325 mg [[place] 7.5-325 mg] 1 tab PO 2-3XD PRN 11/28/17 [History] Ropinirole HCl [Requip] 4 mg PO HS 11/28/17 [History] Ergocalciferol (VITAMIN D2) [Vitamin D] 400 unit PO DAILY 10/27/18 [History] Omeprazole [PriLOSEC] 40 mg PO DAILY 10/27/18 [History] Allergy/AdvReac Type Severity Reaction Status Date / Time No Known Allergies Allergy Verified 10/27/18 18:35 All Systems Reviewed: The remainder of the systems were reviewed and are negative except as noted in HPI Physical Exam - Constitutional Vitals: Temp Pulse Resp BP Pulse Ox 98.2 F 68 14 118/71 96 10/28/18 06:59 10/28/18 06:59 10/28/18 06:59 10/28/18 06:59 10/28/18 06:59 Exam: Consult Exam: Constitutional -Vitals reviewed -The patient is well developed and well nourished. -Mood is pleasant. -The patient is well groomed. Psychiatric -The patient is fully alert and oriented x 3. Respiratory: -Respiratory effort normal Abdomen: -Soft abdomen -Non tender -Non distended: Left upper extremity: -No deformities. The overlying skin is intact. No obvious signs of acute trauma. -No tenderness to palpation throughout. -No significant pain with passive motion of the shoulder, elbow, wrist, and fingers within the limits of the bed. -Able to make an "OK" sign, cross the index and long fingers, and extend the thumb. -Sensation grossly intact to light touch throughout the median, radial, and ulnar distributions. -Radial pulse is present; Fingers have good capillary refill. Right upper extremity: -No deformities. The overlying skin is intact. No obvious signs of acute trauma. -No tenderness to palpation throughout. -No significant pain with passive motion of the shoulder, elbow, wrist, and fingers within the limits of the bed. -Able to make an "OK" sign, cross the index and long fingers, and extend the thumb. -Sensation grossly intact to light touch throughout the median, radial, and ulnar distributions. -Radial pulse is present; Fingers have good capillary refill. Left lower extremity: -No deformities. The overlying skin is intact. No obvious signs of acute trauma. -No tenderness to palpation throughout. -Able to dorsiflex and plantarflex the ankle and toes. -Sensation is grossly intact to light touch throughout the sural, saphenous, superficial peroneal, and deep peroneal distributions. -Toes have good capillary refill. Right lower extremity: -No deformities. The overlying skin is intact. No obvious signs of acute trauma. - tenderness and swelling over anterior knee with minimal surrounding erythema. no drainage. No joint line pain. Distally neurovascularly intact to motor and sensory exam. Ligaments stable -Able to dorsiflex and plantarflex the ankle and toes. -Sensation is grossly intact to light touch throughout the sural, saphenous, superficial peroneal, and deep peroneal distributions. -Toes have good capillary refill. . Results - Labs Result Diagrams: 10/28/18 05:36 10/28/18 05:36 Labs: Abnormal lab results PT 12.2 Seconds (9.4-12.1) H 10/27/18 14:13 H & H 10/27/18 10/28/18 Range/Units 14:13 05:36 Hgb 15.1 14.0 (12.9-16.9) g/dL Hct 46.1 43.7 (37.5-50.1) % All other labs normal. Consult Discharge Plan - Plan Referrals: NONE,PCP [Primary Care Provider] -
[2018-10-28] MEDS ORDERED: *HR* OxyCODONE Immed Rel 5 MG TABLET PO PRN (10:11)
[2018-10-28] MEDS ORDERED: *HR* Meperidine 25 MG/ML SYRINGE IVP PRN (10:11)
[2018-10-28] MEDS ORDERED: Ondansetron 4 MG/2 ML VIAL IVP ONE (10:11)
[2018-10-28] MEDS ORDERED: Naloxone 0.4 MG/ML INJ IVP PRN (10:11)
[2018-10-28] MEDS ORDERED: *HR* Promethazine 25 MG/ML VIAL IVP PRN (10:11)
[2018-10-28] MEDS ORDERED: Ringers Solution, Lactated 1,000 ML IVC SCH (10:15)
[2018-10-28] MEDS ORDERED: Lidocaine -MPF 4% 5 ML AMPUL ONE (10:18)
[2018-10-28] MEDS ORDERED: *HR* Midazolam HCl 2 MG/2 ML VIAL ONE (10:23)
[2018-10-28] MEDS ORDERED: *HR* FentaNYL (PF) 100 MCG/2 ML VIAL ONE (10:24)
[2018-10-28] MEDS ORDERED: *HR* Propofol 200 MG/20 ML VIAL IVP ONE ×2 (10:24→11:05)
[2018-10-28] MEDS ORDERED: *HR* Succinylcholine 200 MG/10 ML VIAL IVP ONE (10:27)
[2018-10-28] MEDS ORDERED: Lidocaine -MPF 2% 2 ML VIAL ONE (10:27)
[2018-10-28] MEDS ORDERED: Dexamethasone 4 MG/ML VIAL ONE (10:27)
[2018-10-28] MEDS ORDERED: Ondansetron 4 MG/2 ML VIAL ONE (10:27)
[2018-10-28] MEDS ORDERED: Acetaminophen IV 1,000 MG/100 ML INFUS..BTL ONE (10:34)
--- NOTE | 2018-10-28 10:59 | Internal Med Progress Note ---
Hospitalist Progress Note - Encounter Date of Encounter: 10/28/18 Time of Encounter: 09:45 - Subjective Interval History: No significant changes in his right knee pain/swelling. Denies any fever/chills. - Exam Vitals: Temp Pulse Resp BP Pulse Ox 98.2 F 68 14 118/71 96 10/28/18 06:59 10/28/18 06:59 10/28/18 06:59 10/28/18 06:59 10/28/18 06:59 Exam: General: Alert and oriented, not in acute distress. Cardiovascular:Normal S1 & S2, No JVD. Pulse regular. Lungs: clear to auscultation, no wheezes/rales Abdomen:Soft, non-tender, no rigidity. Extremities: R knee swelling noted anterior to R patella. Unchanged from yesterday. Warm to touch, extremely tender on palpation. No obvious discharge expressed Neurological:Normal cognition and motor skills. Non-focal - Assessment and Plan (1) Septic prepatellar bursitis of right knee Current Visit: Yes Status: Acute Assessment and Plan: Failed outpatient therapy on oral doxycycline MRI finding consistent with prepatellar bursitis previous fluid culture 10/04 grew MSSA Continue IV Ancef, follow up on blood cultures for op today, will also follow up on intraop cultures ortho input appreciated (2) CAD (coronary artery disease), [place] coronary artery Current Visit: No Status: Chronic Assessment and Plan: History of remote PCI in [facility] 10/2015 showed patent stents and 20-30% stenosis in LAD and LCX. 100% mRCA occlusion with collaterals pt denies any symptoms of angina or decompensated heart failure. RCRI 1, 0.9% risk of MACE resume home meds once reconciled (3) HTN (hypertension) Current Visit: No Status: Chronic Assessment and Plan: resume home meds (4) DVT prophylaxis Current Visit: Yes Status: Acute Assessment and Plan: SQ heparin - Time Spent with Patient Total time spent is greater than 50% in coordination of care (as documented) at patient's floor/unit and/or counseling patient: Plan of Care Discussed with: patient (discussed with pt's as well) Internal Medicine: Result - Labs CBC & Chem 7: 10/28/18 05:36 10/28/18 05:36 Labs: Short CBC 10/27/18 10/28/18 Range/Units 14:13 05:36 WBC 4.8 4.3 (4.3-11.1) K/mcL Hgb 15.1 14.0 (12.9-16.9) g/dL Hct 46.1 43.7 (37.5-50.1) % Plt Count 246 221 (140-400) K/mcL Neutrophils # 3.0 2.0 (1.6-8.9) K/mcL BMP 10/27/18 10/28/18 14:13 05:36 Sodium 140 137 Potassium 4.1 4.4 Chloride 106 104 Carbon Dioxide 27 27 BUN 16 21 Creatinine 0.95 0.99 Glucose 109 H 100 Calcium 10.7 H 9.9 - ABG Interpretation ABG results: PT/INR, D-dimer PT 12.2 Seconds (9.4-12.1) H 10/27/18 14:13 Consult Discharge Plan - Plan Referrals: NONE,PCP [Primary Care Provider] - __ (2) CAD (coronary artery disease), [place] coronary artery Qualifiers: [place] vs. transplanted heart: [place] heart Associated angina: without angina Qualified Code(s): I25.10 - Atherosclerotic heart disease of [place] coronary artery without angina pectoris (3) HTN (hypertension) Qualifiers: Hypertension type: essential hypertension Qualified Code(s): I10 - Essential (primary) hypertension
--- NOTE | 2018-10-28 11:17 | Orthopedic Operative Note ---
Date of procedure: 10/28/18 Procedure: Procedure: 1. Right knee deep abscess irrigation and debridement 2. Right knee prepatellar bursa excision Preoperative Diagnosis: Right knee abscess with septic prepatellar bursitis Postoperative Diagnosis: Same Surgeon: Jose A Barksdale MD Instructional Technology Specialist: None EBL: 20 cc Anesthesia: General Complications: None INDICATIONS: This is a 63-year-old male who was admitted to the hospital with right knee abscess with septic prepatellar bursitis after failing outpatient management with aspiration and PO antibiotics. Over several weeks he had developed pain and significant swelling over the knee, he believes he scraped it on metal a few weeks prior. He had continued pain and swelling despite n onoperative management with outpatient oral antibiotics. MRI showed findings consistent with right knee abscess with septic prepatellar bursitis, aspiration was performed and showed MSSA. Due to the continued pain, swelling and difficulty using the knee, the patient elected for operative management with right knee prepatellar bursal excision and irrigation and debridement. The risks and benefits of the procedure were fully explained. Those risks include but are not limited to, infection, neurovascular injury, continued pain, arthritis, stiffness, further injury, need for further surgery, DVT, PE, loss of limb, and loss of life. The patient understood all of these risks and wished to proceed. Informed consent was obtained. OPERATIVE REPORT: The patient was identified in the holding area. The right lower extremity was marked, the patient was taken to the operating room and placed in the supine position. All bony prominences were well padded. The anesthesiologist performed successful general anesthetic for the remainder of the case. Preoperative antibiotics were being given on the floor prior to the procedure. The patient was steriley prepped and draped. A surgical time out protocol was then performed. An incision was made over the anterior aspect of the right knee. Bovie was used to coagulate any skin bleeders. A deep pocket of fluid overlying the bursa and bone was opened and a significant amount of purulent fluid was encountered and drained. Cultures were taken, both aerobic and anaerobic. Flaps were raised both medially and laterally and the prepatellar bursa was sharpley excised. There was scarring around the bursa and underlying adhesions were broken up circumferentially. Necrotic tissue overlying the bone with then debrided and irrigated with irricept and several liters of normal saline. The incision was then closed with 2-0 Monocryl subcutaneous and then skin was closed with shana. Soft dressing was placed. Patient was awoken by anesthesia and taken the PACU in stable condition. There were no complications Postop plan: The patient will be weight bearing as tolerated and antibiotics will continue per the hospitalist service. Was there an home care assistant present: No Estimated blood loss (cc): 20
[2018-10-28] MEDS ORDERED: *HR* PHENYLEPHRINE 1,000 MCG/10 ML SYRINGE IVP ONE (11:37)
[2018-10-28] MEDS ORDERED: EPHEDrine 50 MG/ML VIAL ONE (11:39)
[2018-10-28] MEDS ORDERED: *HR* HYDROmorphone (PF) 1 MG/ML SYRINGE ONE (12:15)
[2018-10-28] MEDS: *HR* HYDROmorphone (PF) 1 MG/ML SYRINGE IVP PRN ×2 (12:21→12:26)
--- NOTE | 2018-10-28 12:53 | Anesthesia Evaluation Post Op ---
Date of Encounter: 10/28/18 Time of Encounter: 12:52 - Vital Signs Vital Signs: Vital Signs/O2 Sat, Most Current Temp Pulse Resp BP Pulse Ox 98.0 F 75 14 122/75 93 10/28/18 12:41 10/28/18 12:41 10/28/18 12:41 10/28/18 12:41 10/28/18 12:41 - Lungs Lungs: Clear Ascult./Percussion - Airway Airway: Non-obstructed - Cardiovascular Regular Rate - Mental Status Mental Status: Alert & Oriented, Answers Appropriately - Pain Pain Scale used: Numeric (1 - 10) (tolerable) - Nausea Vomiting Nausea Vomiting: Not Present - Hydration Hydration: NPO - Discharge PostOp Status: Transfer Patient to floor
[2018-10-28] MEDS ORDERED: *HR* OxyCODONE Immed Rel 5 MG TABLET PO ONE (13:36)
[2018-10-28] MEDS: traMADol 50 MG TABLET PO PRN ×2 (16:12→22:28)
[2018-10-28] MEDS: rOPINIRole 1 MG TABLET PO SCH (22:22)
[2018-10-28] MEDS: Metoprolol XL (24 HR) Succ 50 MG TAB.ER.24H PO SCH (22:22)
[2018-10-28] MEDS: Isosorbide MONOnitrate (24 HR) 60 MG TAB.ER.24H PO SCH (22:22)
[2018-10-29] MEDS: *HR* OxyCODONE Immed Rel 5 MG TABLET PO PRN ×4 (03:36→20:29)
[2018-10-29] MEDS: *HR* Heparin 5,000 UNIT/ML VIAL SQ SCH ×3 (06:19→22:33)
[2018-10-29] MEDS: ceFAZolin 1,000 MG in Water for inj. (sterile) 20 ML 10 ML IVP SCH ×3 (06:19→22:33)
[2018-10-29] MEDS: Cyanocobalamin (B-12) 1,000 MCG TABLET PO SCH (07:47)
[2018-10-29] MEDS: Cholecalciferol (D-3) 1,000 UNIT TABLET PO SCH (07:48)
[2018-10-29] MEDS: traMADol 50 MG TABLET PO PRN (07:48)
[2018-10-29] MEDS: Aspirin 81 MG TAB.CHEW PO SCH (07:48)
--- NOTE | 2018-10-29 11:07 | Internal Med Progress Note ---
Hospitalist Progress Note - Encounter Date of Encounter: 10/29/18 Time of Encounter: 08:45 - Subjective Interval History: R knee feels somewhat better after I&D yesterday. Foot swelling also improving. Denies any fever/chills. - Exam Vitals: Temp Pulse Resp BP Pulse Ox 98.3 F 79 15 131/71 96 10/29/18 07:38 10/29/18 07:38 10/29/18 07:38 10/29/18 07:38 10/29/18 07:38 Exam: General: Alert and oriented, not in acute distress. Cardiovascular:Normal S1 & S2, No JVD. Pulse regular. Lungs: clear to auscultation, no wheezes/rales Abdomen:Soft, non-tender, no rigidity. Extremities: R LE dressing c/d/i Neurological:Normal cognition and motor skills. Non-focal - Assessment and Plan (1) Septic prepatellar bursitis of right knee Current Visit: Yes Status: Acute Assessment and Plan: Failed outpatient therapy on oral doxycycline MRI finding on 10/20 consistent with prepatellar bursitis previous fluid culture 10/04 grew MSSA Continue IV Ancef, follow up on blood cultures intraop gram stain -ve so far ortho input appreciated discussed with ID over the phone, will continue to follow up on culture for 48 hours and discharge him on keflex for another 10 days if it continues to be -ve (2) CAD (coronary artery disease), [place] coronary artery Current Visit: No Status: Chronic Assessment and Plan: History of remote PCI in [facility] and [facility], no anginal symptoms resume home meds (3) HTN (hypertension) Current Visit: No Status: Chronic Assessment and Plan: resume home meds (4) DVT prophylaxis Current Visit: Yes Status: Acute Assessment and Plan: SQ heparin - Time Spent with Patient Total time spent is greater than 50% in coordination of care (as documented) at patient's floor/unit and/or counseling patient: Plan of Care Discussed with: patient (discussed with orthopedics and ID as well) Internal Medicine: Result - Labs CBC & Chem 7: 10/28/18 05:36 10/28/18 05:36 - ABG Interpretation ABG results: PT/INR, D-dimer PT 12.2 Seconds (9.4-12.1) H 01/11/19 14:13 Consult Discharge Plan - Plan Referrals: NONE,PCP [Primary Care Provider] - (2) CAD (coronary artery disease), [place] coronary artery Qualifiers: [place] vs. transplanted heart: [place] heart Associated angina: without angina Qualified Code(s): I25.10 - Atherosclerotic heart disease of [place] coronary artery without angina pectoris (3) HTN (hypertension) Qualifiers: Hypertension type: essential hypertension Qualified Code(s): I10 - Essential (primary) hypertension
--- NOTE | 2018-10-29 11:52 | Orthopedics Progress Note ---
Date of Encounter: 10/29/18 Time of Encounter: 11:51 - Assessment and Plan (1) Septic prepatellar bursitis of right knee Current Visit: Yes Status: Acute Subjective Interval history: Doing well s/p R prepatellar bursa I&D. Pain improving. No fevers or chills AFVSS Intraop ctx negative GEN: NAD, AAOx3 RLE: Inc c/d/i No surrounding erythema Minimal tenderness surrounding the knee POD#1 s/p R knee prepatellar bursa I&D WBAT Continue IV atbx Appreciate medical mgmt Plan to follow ctx for 48 h and then d/c on likely PO atbx tomorrow AM Objective Vital signs: Vital Signs Temp Pulse Resp BP Pulse Ox 10/29/18 07:38 98.3 F 79 15 131/71 96 10/29/18 04:34 97.8 F 76 14 113/66 96 10/29/18 00:57 98.1 F 75 16 130/68 93 10/28/18 19:18 97.6 F 97 16 148/72 93 10/28/18 17:35 99.3 F 94 15 155/88 94 10/28/18 16:10 98.2 F 85 15 133/71 96 10/28/18 14:50 97.9 F 73 18 150/78 96 10/28/18 14:10 97.8 F 73 18 96 10/28/18 13:20 97.8 F 72 17 148/76 94 10/28/18 12:51 98.0 F 74 13 119/74 95 10/28/18 12:41 98.0 F 75 14 122/75 93 10/28/18 12:31 77 18 121/66 95 10/28/18 12:21 77 15 115/63 94 10/28/18 12:11 97.9 F 75 16 126/63 99 Intake and Output 10/28/18 10/29/18 10/29/18 23:59 07:59 15:59 Intake Total 650 / 650 310 / 310 240 / 240 Output Total 600 / 600 Balance 50 / 50 310 / 310 240 / 240 Intake: IV Fluids Ancef 1,000 MG In Water for inj . (sterile) 10 ML @ 200 mls/hr IVP Q8H [facility] Rx#:[id number] Oral 640 / 640 300 / 300 240 / 240 Output: Urine 600 / 600 Other: Meal Dinner Breakfast Percent of Meal Consumed 100% 100% # Voids 1 1 Weight 140.9 kg Patient Weight 10/29/18 23:59 Weight 140.9 kg - Labs CBC & BMP: 10/28/18 05:36 10/28/18 05:36 Labs: Abnormal lab results PT 12.2 Seconds (9.4-12.1) H 10/27/18 14:13 Consult Discharge Plan - Plan Referrals: NONE,PCP [Primary Care Provider] -
[2018-10-29] MEDS: rOPINIRole 1 MG TABLET PO SCH (20:28)
[2018-10-29] MEDS: Metoprolol XL (24 HR) Succ 50 MG TAB.ER.24H PO SCH (20:29)
[2018-10-29] MEDS: Isosorbide MONOnitrate (24 HR) 60 MG TAB.ER.24H PO SCH (20:29)
[2018-10-30 04:59] LABS: Hematocrit 42.2 % (37.5-50.1); Hemoglobin 13.9 g/dL (12.9-16.9); Mean Corpuscular HGB Conc 32.9 g/dL (31.6-35.5); Mean Corpuscular Hemoglobin 29.4 pg (28.0-33.3); Mean Corpuscular Volume 89.2 fL (83.0-100.0); Mean Platelet Volume 9.9 fL (9.4-12.4); Platelet Count 231 K/mcL (140-400); Red Blood Count 4.73 M/mcL (4.19-5.50); Red Cell Distribution Width 14.1 % (11.5-14.5)
[2018-10-30 05:18] LABS: BUN/Creatinine Ratio 22 (6-26); Blood Urea Nitrogen 19 mg/dL (8-23); Calcium 9.9 mg/dL (8.6-10.3); Carbon Dioxide 25 mEq/L (23-29); Chloride 101 mEq/L (98-107); Glucose 101 mg/dL (70-105); Osmolality,Calculated 282 (280-300); Potassium 4.2 mEq/L (3.5-5.1); Sodium 135 mEq/L (136-145); eGFR For Non-African Americans > 60 (> 60)
[2018-10-30] MEDS: *HR* Heparin 5,000 UNIT/ML VIAL SQ SCH (06:12)
[2018-10-30] MEDS: ceFAZolin 1,000 MG in Water for inj. (sterile) 20 ML 10 ML IVP SCH (06:12)
[2018-10-30] MEDS: *HR* OxyCODONE Immed Rel 5 MG TABLET PO PRN (06:13)
[2018-10-30 08:05] VITALS: BP 148/91
[2018-10-30] MEDS: Cholecalciferol (D-3) 1,000 UNIT TABLET PO SCH (08:24)
[2018-10-30] MEDS: Aspirin 81 MG TAB.CHEW PO SCH (08:24)
[2018-10-30] MEDS: Cyanocobalamin (B-12) 1,000 MCG TABLET PO SCH (08:24)
--- NOTE | 2018-10-30 09:54 | Discharge Summary ---
- NOTES TO OUTPATIENT PROVIDER Notes to Outpatient Provider: She was admitted for right prepatellar septic bursitis, previously MSSA positive on fluid culture. Failed outpatient therapy on Doxy and underwent I&D on 10/28 uneventfully. Intraop culture did not grow anything and after discussing with ID, patient will be discharged home on PO Keflex for a total of 10 day course. Follow up with orthopedics as outpatient. Orders not resulted at time of discharge: Pending orders 10/27/18 14:13 Culture,Blood [BC] Routine 10/28/18 09:42 EKG [ECG 12 lead ECG] [ECG] Routine 10/28/18 12:07 Culture,Anaerobic [RM] Routine Culture,Tissue (Biopsy) [RM] Routine Date of Encounter: 10/30/18 Time of Encounter: 07:30 - Discharge Diagnosis (1) Septic prepatellar bursitis of right knee Priority: Primary Status: Acute (2) CAD (coronary artery disease), [place] coronary artery Priority: Secondary Status: Chronic Qualifiers: [place] vs. transplanted heart: [place] heart Associated angina: without angina Qualified Code(s): I25.10 - Atherosclerotic heart disease of [place] coronary artery without angina pectoris (3) HTN (hypertension) Priority: Secondary Status: Chronic Qualifiers: Hypertension type: essential hypertension Qualified Code(s): I10 - Essential (primary) hypertension (4) DVT prophylaxis Priority: Secondary Status: Acute Hospital course: Mr. Jeffers is a 63 year old male was admitted for right prepatellar septic bursitis, previously MSSA positive on fluid culture. Failed outpatient therapy on Doxy and underwent I&D on 10/28 uneventfully. Intraop culture did not grow anything and after discussing with ID, patient will be discharged home on PO Keflex for a total of 10 day course. Follow up with orthopedics as outpatient. Discharge discussed with: patient, family, nurse - Time Spent with Patient Total time spent providing and/or coordinating discharge services: 32 mins - Discharge Medications Prescriptions: cephALEXin [Keflex] 500 mg PO QID 7 Days #28 capsule Home Medications: Aspirin 81 mg PO DAILY 10/24/15 [History] Atorvastatin Calcium [Lipitor] 80 mg PO HS 10/24/15 [History] Cyanocobalamin (Vitamin B-12) [Vitamin B-12] 1,000 mcg SL DAILY 10/24/15 [History] Isosorbide MONOnitrate [Isosorbide Mononitrate ER] 120 mg PO DAILY 10/24/15 [History] Metoprolol XL (24 HR) Succ [Toprol Xl] 50 mg PO DAILY 10/24/15 [History] Nitroglycerin [Nitrostat] 0.4 mg SL Q5-6MIN PRN 10/24/15 [History] Cyclobenzaprine HCl 5 mg PO HS PRN 11/28/17 [History] HYDROcodone/Acet 7.5/325 mg [[place] 7.5-325 mg] 1 tab PO 2-3XD PRN 11/28/17 [History] Ropinirole HCl [Requip] 4 mg PO HS 11/28/17 [History] Ergocalciferol (VITAMIN D2) [Vitamin D] 400 unit PO DAILY 10/27/18 [History] Omeprazole [PriLOSEC] 40 mg PO DAILY 10/27/18 [History] cephALEXin [Keflex] 500 mg PO QID 7 Days #28 capsule 10/30/18 [Rx] Allergies/Adverse Reactions: Allergy/AdvReac Type Severity Reaction Status Date / Time No Known Allergies Allergy Verified 10/27/18 18:35 Date of admission: 10/28/18 14:28 Primary care physician: PCP NONE Consults: 10/27/18 13:41 Consult to Orthopedic Surgery [CONS] Routine Consulting Provider: [facility] Reason for Consult: sent by Dr. Barksdale, septic prepatellar bursitis Call Completed: Yes - Constitutional Vitals: Temp Pulse Resp BP Pulse Ox 97.8 F 73 15 148/91 94 10/30/18 08:04 10/30/18 08:04 10/30/18 08:04 10/30/18 08:04 10/30/18 08:04 Exam: General: Alert and oriented, not in acute distress. Cardiovascular:Normal S1 & S2, No JVD. Pulse regular. Lungs: clear to auscultation, no wheezes/rales Abdomen:Soft, non-tender, no rigidity. Extremities: R LE dressing c/d/i Neurological:Normal cognition and motor skills. Non-focal - Patient Status Disposition: Home, Self-Care Condition: Fair Functional capacity at discharge: independent ambulation Overall status at discharge: patient is progressing back to baseline - Discharge Instructions Instructions: Chronic Hypertension (DC) Follow Up With: NONE,PCP [Primary Care Provider] - Additional Instructions: Followup with Shamir 11/10/18 in AM - call office to make this prior to d/c. Complete 7 more days of PO Keflex, total of 10 day course - Diet and Activity Activity: resume usual activities as tolerated Diet: low salt diet
--- NOTE | 2018-10-30 20:12 | Electrocardiograph Report ---
[place] [id number] Test Date: 2018-10-28 Pat Name: Olaf Jeffers Department: 114 Room: [facility] Gender: M Director Integrated: : 1955 Requested By: Jose A Barksdale Order Number: [id number] Reading MD: Nimo Perales Measurements Intervals [place] Rate: 66 P: 35 HI: 179 QRS: -39 QRSD: 105 T: 62 QT: 400 QTc: 413 Interpretive Statements SINUS RHYTHM MARKED LEFT AXIS DEVIATION VOLTAGE CRITERIA FOR LVH Electronically Signed On 10-30-2018 20:11:16 EST by Nimo Perales
== END 2018-10-30 10:25 | disposition home or self-care (01) | DRG 501 ==
LOC: 3NENU → SUATTDRO 12:22
PROVIDERS: ADMIT Internal Medicine; ATTEND Internal Medicine